=== PATIENT | female | born 1990 | race African-American/Black ===

== ENCOUNTER 2016-12-11 20:19 | Emergency (ER) | payer OTHER ==
[~2016-12-11] VITALS: Ht 170.2 cm; Wt 71.0 kg
[~2016-12-11 20:19] MED LIST: BACTRIM DS1 TAB PO; BENADRY2 EX; BENADRYL 50MG C50 MG PO; CEPHALEXIN500 MG PO; CIPROFLOXACN500 MG PO; DOXY-CAPS100 MG PO; IBUPROFEN600 MG PO; IRON325 M1 PO; LORTAB 7.57.5 MG PO; MOTRIN800 MG PO; NAPROSYN500 MG PO; ONDANSETRON4 MG PO; PRENATABS RX PO; PRENATAL; PROVENTIL HFA IN; ROBITUSSIN200 MG/10 PO; ULTRAM50 M1 PO; VISTARIL 50MG C50 M1 PO; ZOFRAN ODT4 MG PO
[2016-12-11] MEDS ORDERED: NAPROSYN500 MG PO (23:07)
[2016-12-11 23:59] VITALS: BP 123/77
== END 2016-12-12 05:27 | disposition home or self-care (01) | DRG 563 ==
LOC: ED 20:19
DX: S63.502A Unspecified sprain of left wrist, initial encounter (principal); X58.XXXA Exposure to other specified factors, initial encounter; Y93.89 Activity, other specified; Y92.89 Other specified places as the place of occurrence of the external cause

== ENCOUNTER 2017-02-01 17:32 | Emergency (ER) | payer OTHER ==
[~2017-02-01] VITALS: Ht 170.2 cm; Wt 80.0 kg
[2017-02-01] MEDS ORDERED: PRENATA4 PO (17:46)
[2017-02-01] MEDS ORDERED: FERROUS SULF324 M1 PO (17:47)
[2017-02-01 18:44] LABS: URINE BILIRUBIN - DIPSTICK NEGATIVE (NEGATIVE); URINE BLOOD DIPSTICK NEGATIVE (NEGATIVE); URINE COLOR YELLOW; URINE GLUCOSE - DIPSTICK NEGATIVE (NEGATIVE); URINE KETONE TRACE mg/dL (NEGATIVE); URINE LEUK ESTERASE NEGATIVE (NEGATIVE); URINE PROTEIN - DIPSTICK TRACE mg/dL (NEG-TRACE); URINE SPECIFIC GRAVITY >=1.030; URINE UROBILINOGEN - DIPSTICK 0.2 E.U./dL (0.2)
[2017-02-01 18:53] LABS: URINE CLARITY CLOUDY; URINE NITRITE - DIPSTICK POSITIVE (Negative)
[2017-02-01 18:54] LABS: URINE BACTERIA MANY hpf; URINE SQUAMOUS EPITHELIAL CELL FEW EPI/hpf (0-FEW)
[2017-02-01] MEDS ORDERED: MACRODANTIN100 MG PO (19:02)
[2017-02-01 19:38] VITALS: BP 132/69
== END 2017-02-01 19:39 | disposition home or self-care (01) | DRG 781 ==
LOC: ED 17:32
PROVIDERS: Emergency Medicine
DX: O26.892 Other specified pregnancy related conditions, second trimester (principal); B96.20 Unspecified Escherichia coli [E. coli] as the cause of diseases classified elsewhere; R51 Headache; O23.42 Unspecified infection of urinary tract in pregnancy, second trimester; O99.512 Diseases of the respiratory system complicating pregnancy, second trimester; J45.909 Unspecified asthma, uncomplicated; Z3A.19 19 weeks gestation of pregnancy

== ENCOUNTER 2017-04-02 21:25 | Emergency (ER) | payer OTHER ==
[~2017-04-02] VITALS: Ht 170.2 cm; Wt 77.8 kg
[~2017-04-02 21:25] MED LIST changes: +FERR SULFATE325 MG PO; +FERROUS SULF324 M1 PO; +MACRODANTIN100 MG PO; +PRENATA4 PO
[2017-04-02 22:15] LABS: HEMATOCRIT 30.4 % (37.0-47.0); HEMOGLOBIN 9.6 g/dl (12.0-16.0); IMMATURE GRANULOCYTES 1.3 % (0.0-1.0); MEAN CELL VOLUME 71.4 fL CALC (80.0-100.0); MEAN CORPUSCULAR HGB 22.5 pG CALC (26.0-32.0); MEAN CORPUSCULAR HGB CONC 31.6 g/L CALC (32.0-36.0); NEUT# 7.36 thou/uL (2.00-7.15); RED BLOOD COUNT 4.26 mill/uL (4.20-5.60); RED CELL DISTRI WIDTH 17.7 % (11.5-15.5)
[2017-04-02 22:27] LABS: ALBUMIN 3.9 g/dL (3.2-5.0); ALKALINE PHOSPHATASE 61 u/l (38-126); ANION GAP 11 (6-22 (CALC)); BILIRUBIN, TOTAL 0.3 mg/dL (0.0-1.4); BUN 10 mg/dL (7-17); BUN/CREATININE RATIO 19 (12-20 (CALC)); CALCIUM 9.2 mg/dL (8.4-10.2); CARBON DIOXIDE 24 mmol/l (22-30); CHLORIDE 104 mmol/l (95-108); CREATININE 0.6 mg/dL (0.5-1.0); GFR > 60 ML/MIN (>=60 (CALC)); GFR FOR AFR.AMER. > 60 ML/MIN (>=60 (CALC)); GLUCOSE 93 mg/dL (65-105); POTASSIUM 3.5 mmol/l (3.5-5.1); SGOT/AST 25 u/l (14-36); SGPT/ALT 28 u/l (9-52); SODIUM 135 mmol/l (137-146); TOTAL PROTEIN 7.3 g/dL (6.3-8.2)
[2017-04-02 22:39] LABS: MYOGLOBIN 38 ng/mL (0 - 62)
--- NOTE | 2017-04-02 23:00 | NUR ---
BREATHING TREATMENT GIVEN FOR WHEEZING. EXPLANATION GIVEN ABOUT HOW TO DEPOSIT THE PARTICLES DOWN TO THE LUNGS.
[2017-04-02] MEDS ORDERED: KEFLEX500 M1 PO (23:54)
[2017-04-03 00:08] VITALS: BP 102/55
[2017-04-03] MEDS ORDERED: VENTOLIN HFA IN (00:08)
== END 2017-04-03 00:18 | disposition home or self-care (01) | DRG 781 ==
LOC: ED 21:25
PROVIDERS: Emergency Medicine
DX: O26.892 Other specified pregnancy related conditions, second trimester (principal); J40 Bronchitis, not specified as acute or chronic; R09.1 Pleurisy; R06.02 Shortness of breath; R11.10 Vomiting, unspecified; Z3A.20 20 weeks gestation of pregnancy; R01.1 Cardiac murmur, unspecified

== ENCOUNTER 2017-04-12 14:54 | Emergency (ER) | payer OTHER ==
[~2017-04-12] VITALS: Ht 170.2 cm; Wt 78.0 kg
[~2017-04-12 14:54] MED LIST changes: +KEFLEX500 M1 PO; +VENTOLIN HFA IN
[2017-04-12 16:43] LABS: URINE BILIRUBIN - DIPSTICK NEGATIVE (NEGATIVE); URINE BLOOD DIPSTICK NEGATIVE (NEGATIVE); URINE CLARITY CLEAR; URINE COLOR YELLOW; URINE GLUCOSE - DIPSTICK NEGATIVE (NEGATIVE); URINE KETONE NEGATIVE (NEGATIVE); URINE LEUK ESTERASE NEGATIVE (NEGATIVE); URINE NITRITE - DIPSTICK NEGATIVE (Negative); URINE PROTEIN - DIPSTICK NEGATIVE (NEG-TRACE); URINE SPECIFIC GRAVITY 1.015; URINE UROBILINOGEN - DIPSTICK 0.2 E.U./dL (0.2)
[2017-04-12 16:47] LABS: HEMATOCRIT 29.8 % (37.0-47.0); HEMOGLOBIN 9.2 g/dl (12.0-16.0); IMMATURE GRANULOCYTES 1.3 % (0.0-1.0); MEAN CELL VOLUME 71.3 fL CALC (80.0-100.0); MEAN CORPUSCULAR HGB CONC 30.9 g/L CALC (32.0-36.0); NEUT# 5.13 thou/uL (2.00-7.15); RED BLOOD COUNT 4.18 mill/uL (4.20-5.60); RED CELL DISTRI WIDTH 17.6 % (11.5-15.5)
[2017-04-12 17:13] LABS: ANION GAP 12 (6-22 (CALC)); BUN 5 mg/dL (7-17); BUN/CREATININE RATIO 9 (12-20 (CALC)); CALCIUM 8.8 mg/dL (8.4-10.2); CARBON DIOXIDE 23 mmol/l (22-30); CHLORIDE 106 mmol/l (95-108); CREATININE 0.5 mg/dL (0.5-1.0); GFR > 60 ML/MIN (>=60 (CALC)); GFR FOR AFR.AMER. > 60 ML/MIN (>=60 (CALC)); GLUCOSE 82 mg/dL (65-105); POTASSIUM 3.9 mmol/l (3.5-5.1); SODIUM 137 mmol/l (137-146)
[2017-04-12] MEDS ORDERED: PHENERGAN25 MG/TAB PO (17:27)
[2017-04-12 17:37] VITALS: BP 122/69
== END 2017-04-12 17:50 | disposition home or self-care (01) | DRG 781 ==
LOC: ED 14:54
PROVIDERS: Family Medicine
DX: O21.2 Late vomiting of pregnancy (principal); R05 Cough; Z3A.20 20 weeks gestation of pregnancy

== ENCOUNTER 2017-05-22 13:00 | Observation (INO) | payer OTHER ==
[~2017-05-22] VITALS: Ht 170.2 cm; Wt 79.4 kg
[2017-05-22] VITALS (11 sets, daily range): BP systolic 105–117; BP diastolic 52–65
--- NOTE | 2017-05-22 12:53 | NUR ---
Received patient from ER to Room 250. Patient here for complaint of vomiting, headache and lightheadness. Patient weighed and height obtained. Patient to bathroom for urine obtainment for urinalysis.
[~2017-05-22 13:00] MED LIST changes: +PHENERGAN25 MG/TAB PO
--- NOTE | 2017-05-22 13:30 | NUR ---
heart rate of 155, No contractions seen or palpated.
[2017-05-22 13:34] LABS: URINE BILIRUBIN - DIPSTICK NEGATIVE (NEGATIVE); URINE BLOOD DIPSTICK NEGATIVE (NEGATIVE); URINE CLARITY CLEAR; URINE COLOR YELLOW; URINE GLUCOSE - DIPSTICK NEGATIVE (NEGATIVE); URINE KETONE TRACE mg/dL (NEGATIVE); URINE LEUK ESTERASE NEGATIVE (NEGATIVE); URINE NITRITE - DIPSTICK NEGATIVE (Negative); URINE PH 6.5 (4.5-8.0); URINE PROTEIN - DIPSTICK TRACE mg/dL (NEG-TRACE); URINE SPECIFIC GRAVITY 1.025; URINE UROBILINOGEN - DIPSTICK 0.2 E.U./dL (0.2)
[2017-05-22] MEDS ORDERED: PRENATAL1 TA1 (13:41)
[2017-05-22 13:51] LABS: BARBITURATES NEGATIVE (NEGATIVE); COCAINE NEGATIVE (NEGATIVE); METHADONE NEGATIVE (NEGATIVE); OXCYCODONE NEGATIVE (NEGATIVE); TETRAHYDROCANNABIONOL NEGATIVE (NEGATIVE); TRICYLIC ANTIDEPRESSANTS NEGATIVE (NEGATIVE)
--- NOTE | 2017-05-22 14:00 | NUR ---
heart rate of 155, Moderate variability appropriate for gestational age.
--- NOTE | 2017-05-22 14:10 | NUR ---
Zofran 4mg iv every 4 hours as needed for nausea to be given.
--- NOTE | 2017-05-22 14:10 | NUR ---
Dr. Rueda called and notified of patient's presence on unit. Order for Lactated Ringers with bolus of 150cc, then Lactated Ringers at 125cc/hr, Labs of CBC and CMP to be drawn.
--- NOTE | 2017-05-22 14:30 | NUR ---
iv START OF WITH lACTATED RINGERS. iv BOLUS OF lACTATED RINGERS 500CC AND THEN AT 125CC/HR.
--- NOTE | 2017-05-22 15:00 | NUR ---
cALL TO dR. Baker FOR INTERMITTENT MONITORING AND CLEAR LIQUID DIET FOR PATIENT.
[2017-05-22 15:06] LABS: HEMATOCRIT 31.7 % (37.0-47.0); HEMOGLOBIN 9.8 g/dl (12.0-16.0); IMMATURE GRANULOCYTES 2.5 % (0.0-1.0); MEAN CELL VOLUME 69.4 fL CALC (80.0-100.0); MEAN CORPUSCULAR HGB 21.4 pG CALC (26.0-32.0); MEAN CORPUSCULAR HGB CONC 30.9 g/L CALC (32.0-36.0); NEUT# 7.64 thou/uL (2.00-7.15); RED BLOOD COUNT 4.57 mill/uL (4.20-5.60)
--- NOTE | 2017-05-22 15:18 | NUR ---
zOFRAN 4MG iv GIVEN FOR NAUSEA.
[2017-05-22 15:29] LABS: ALBUMIN 3.8 g/dL (3.2-5.0); ALKALINE PHOSPHATASE 79 u/l (38-126); ANION GAP 13 (6-22 (CALC)); BILIRUBIN, TOTAL 0.5 mg/dL (0.0-1.4); BUN 7 mg/dL (7-17); BUN/CREATININE RATIO 13 (12-20 (CALC)); CALCIUM 9.3 mg/dL (8.4-10.2); CARBON DIOXIDE 22 mmol/l (22-30); CHLORIDE 104 mmol/l (95-108); CREATININE 0.5 mg/dL (0.5-1.0); GFR > 60 ML/MIN (>=60 (CALC)); GFR FOR AFR.AMER. > 60 ML/MIN (>=60 (CALC)); GLUCOSE 74 mg/dL (65-105); POTASSIUM 4.3 mmol/l (3.5-5.1); SGOT/AST 22 u/l (14-36); SGPT/ALT 28 u/l (9-52); SODIUM 136 mmol/l (137-146); TOTAL PROTEIN 7.1 g/dL (6.3-8.2)
--- NOTE | 2017-05-22 16:53 | NUR ---
patient resting comfortably in bed in no distress at present moment.
--- NOTE | 2017-05-22 19:52 | NUR ---
PT OOB TO VOID. THEN EFM APPILED BABY IS MOVING. PT STATED NO CONTRACTIONS AND ABDOMEN PALPATED NO CONTRACTION FELT.
--- NOTE | 2017-05-22 22:31 | NUR ---
1899: REPORT RECEIVED BY TWYLA CRONIN. PT IS SITTING IN BED. PT STATED THAT SHE HAS A HEADACHE. TOLD PT WILL CALL MD FOR MEDICATION. PT DENIES ANY OTHER NEEDS AT THIS TIME. 1943: CALLED DR. GONZALEZ RE: PT C/O A HEADACHE. ORDERS RECEIVED. 2133: CALLED DR. GONZALEZ RE: FHM, BABY IS REACTIVE 150 , ACCELS, AND VARIABILITY MODERATE. MD STATED MAY TAKE FHM OFF AND DO NST IN THE AM.
--- NOTE | 2017-05-22 23:02 | NUR ---
PT IS RESTING IN BED. PT STATED "HEADACHE IS FEELING BETTER PAIN IS 4/10". PT STATED WILL TRY TO SLEEP. PT DENIES ANY NEEDS AT THIS TIME.
--- NOTE | 2017-05-23 02:19 | NUR ---
PT IS SLEEPING IN BED WITH NO S/S OF DISTRESS NOTED.
--- NOTE | 2017-05-23 06:06 | NUR ---
PT IS RESTING IN BED. PT STATED THAT SHE DOES NOT HAVE A HEADACHE ANY MORE. PT DENIES ANY NEEDS AT THIS TIME. GETTING REPORT READY FOR ONCOMING SHIFT.
--- NOTE | 2017-05-23 07:30 | NUR ---
PT LAYING IN BED, RESTING, UP TO VOID, 300ML OF DARK YELLOW/ORANGE. EFM STARTED, VERY DIFFICULT TO TOOTH CLERK FHR. ASSESSMENT AND VS DONE, STABLE, PT C/O PAIN 5/10 TO LOWER ABDOMEN, STATES PAIN IS THERE ALL THE TIME, DULL. WILL LET MD KNOW.
[2017-05-23 07:40] VITALS: BP 118/66
--- NOTE | 2017-05-23 07:55 | NUR ---
DR. GONZALEZ AT BEDSIDE, NOTIFIED OF DARK URINE, WELL DIFFICULT PICKING UP FHR, ORDERS CHANGED FROM NST TO FHR DOPPLER Q SHIFT. ALSO NOTIFIED MD OF PT'S C/O LOWER ABDOMINAL PAIN 01/16. FURTHER ORDERS RECEIVED. PT DENIES HEADACHE OR NAUSEA THIS MORNING.
--- NOTE | 2017-05-23 09:50 | NUR ---
PT TAKEN TO ULTRASOUND AT THIS TIME.
--- NOTE | 2017-05-23 10:38 | NUR ---
Dr GONZALEZ UPDATED ON PATIENT ULTRASOUND WNL, FLUID VISABLE, AND CERVICAL LENGTH OF 4/5 CM. PT COMPLAINING OF MILD HEADACHE AND LOWER ABDOMNAL PAIN. MEDICATION GIVEN TO PATIENT AT THIS TIME. PT DENIES ANY OTHER NEEDS AT THIS TIME. PT ASKING IF SHE GETS TO GO HOME TODAY WELL. PHYSICIAN GAVE DISCHARGE ORDERS. PT NEEDS TO FOLLOW UP WITH HER REGULAR SCHEDULED APPONTMENT IN THE OFFICE.
--- NOTE | 2017-05-23 10:45 | NUR ---
PT GIVEN DISCHARGE INSTRUCTIONS AND LABOR PRECAUTIONS. PT UNDERSTANDS ALL INSTRUCTIONS AND HAS AN APPOINTMENT SCHEDULED SaturdayMay WITH DR GONZALEZ. PT LEFT AMBLATORY WITH ALL BELONGINGS. PT DENIES ANY PROBLEMS AT THIS TIME.
== END 2017-05-23 11:02 | disposition home or self-care (01) | DRG 781 ==
LOC: OBOP 13:00 → OB 13:00 → OBOP 14:14 → OB 19:44
PROVIDERS: ADMIT Obstetrics & Gynecology; ATTEND Obstetrics & Gynecology
DX: O26.892 Other specified pregnancy related conditions, second trimester (principal); E86.9 Volume depletion, unspecified; R10.30 Lower abdominal pain, unspecified; R11.2 Nausea with vomiting, unspecified; R10.13 Epigastric pain; Z3A.26 26 weeks gestation of pregnancy
CPT/HCPCS: G0378

== ENCOUNTER 2017-06-16 19:40 | Emergency (ER) | payer OTHER ==
[~2017-06-16] VITALS: Ht 170.2 cm; Wt 82.2 kg
[~2017-06-16 19:40] MED LIST changes: +PRENATAL1 TA1
[2017-06-16 22:38] VITALS: BP 117/55
== END 2017-06-16 22:38 | disposition home or self-care (01) | DRG 781 ==
LOC: ED 19:40
DX: O26.893 Other specified pregnancy related conditions, third trimester (principal); M79.651 Pain in right thigh; Z3A.31 31 weeks gestation of pregnancy; R22.41 Localized swelling, mass and lump, right lower limb

== ENCOUNTER 2017-06-21 23:19 | Observation (INO) | payer OTHER ==
[~2017-06-21] VITALS: Ht 170.2 cm; Wt 81.6 kg
[2017-06-21 23:30] VITALS: BP 134/72
[2017-06-21 23:55] LABS: URINE BILIRUBIN - DIPSTICK NEGATIVE (NEGATIVE); URINE BLOOD DIPSTICK NEGATIVE (NEGATIVE); URINE CLARITY SLIGHT CLOUDY; URINE COLOR YELLOW; URINE GLUCOSE - DIPSTICK NEGATIVE (NEGATIVE); URINE KETONE NEGATIVE (NEGATIVE); URINE LEUK ESTERASE NEGATIVE (NEGATIVE); URINE NITRITE - DIPSTICK NEGATIVE (Negative); URINE PH 6.5 (4.5-8.0); URINE PROTEIN - DIPSTICK NEGATIVE (NEG-TRACE); URINE UROBILINOGEN - DIPSTICK 0.2 E.U./dL (0.2)
[2017-06-21 23:58] LABS: BARBITURATES NEGATIVE (NEGATIVE); COCAINE NEGATIVE (NEGATIVE); METHADONE NEGATIVE (NEGATIVE); OXCYCODONE NEGATIVE (NEGATIVE); TETRAHYDROCANNABIONOL NEGATIVE (NEGATIVE); TRICYLIC ANTIDEPRESSANTS NEGATIVE (NEGATIVE)
[2017-06-22 01:00] VITALS: BP 126/86
[2017-06-22 06:30] VITALS: BP 119/67
== END 2017-06-22 09:12 | disposition home or self-care (01) | DRG 781 ==
LOC: OB 23:19 → OBOP 23:19 → OB 06-22 00:50
PROVIDERS: ADMIT Obstetrics & Gynecology; ATTEND Obstetrics & Gynecology
DX: O26.893 Other specified pregnancy related conditions, third trimester (principal); R10.30 Lower abdominal pain, unspecified; Z3A.30 30 weeks gestation of pregnancy
CPT/HCPCS: G0378

== ENCOUNTER 2017-08-06 03:25 | Observation (INO) | payer OTHER ==
[~2017-08-06] VITALS: Ht 170.2 cm; Wt 84.8 kg
[2017-08-06] VITALS (13 sets, daily range): BP systolic 105–126; BP diastolic 54–75
[2017-08-06 03:44] LABS: URINE BILIRUBIN - DIPSTICK NEGATIVE (NEGATIVE); URINE BLOOD DIPSTICK SMALL (NEGATIVE); URINE COLOR YELLOW; URINE GLUCOSE - DIPSTICK NEGATIVE (NEGATIVE); URINE KETONE TRACE mg/dL (NEGATIVE); URINE LEUK ESTERASE NEGATIVE (NEGATIVE); URINE NITRITE - DIPSTICK NEGATIVE (Negative); URINE PH 6.5 (4.5-8.0); URINE PROTEIN - DIPSTICK NEGATIVE (NEG-TRACE); URINE UROBILINOGEN - DIPSTICK 0.2 E.U./dL (0.2)
[2017-08-06 03:46] LABS: BARBITURATES NEGATIVE (NEGATIVE); COCAINE NEGATIVE (NEGATIVE); METHADONE NEGATIVE (NEGATIVE); OXCYCODONE NEGATIVE (NEGATIVE); TETRAHYDROCANNABIONOL NEGATIVE (NEGATIVE); TRICYLIC ANTIDEPRESSANTS NEGATIVE (NEGATIVE); URINE CLARITY SL CLOUDY
[2017-08-06 03:47] LABS: URINE BACTERIA FEW hpf; URINE SQUAMOUS EPITHELIAL CELL FEW EPI/hpf (0-FEW)
[2017-08-06 05:14] LABS: HEMATOCRIT 27.3 % (37.0-47.0); HEMOGLOBIN 8.3 g/dl (12.0-16.0); IMMATURE GRANULOCYTES 1.6 % (0.0-1.0); MEAN CELL VOLUME 64.1 fL CALC (80.0-100.0); MEAN CORPUSCULAR HGB 19.5 pG CALC (26.0-32.0); MEAN CORPUSCULAR HGB CONC 30.4 g/L CALC (32.0-36.0); NEUT# 6.35 thou/uL (2.00-7.15); RED BLOOD COUNT 4.26 mill/uL (4.20-5.60)
[2017-08-06 05:20] LABS: ALBUMIN 3.3 g/dL (3.2-5.0); ALKALINE PHOSPHATASE 79 u/l (38-126); ANION GAP 11 (6-22 (CALC)); BILIRUBIN, TOTAL 0.6 mg/dL (0.0-1.4); BUN 7 mg/dL (7-17); BUN/CREATININE RATIO 13 (12-20 (CALC)); CALCIUM 8.8 mg/dL (8.4-10.2); CARBON DIOXIDE 20 mmol/l (22-30); CHLORIDE 109 mmol/l (95-108); CREATININE 0.5 mg/dL (0.5-1.0); GFR > 60 ML/MIN (>=60 (CALC)); GFR FOR AFR.AMER. > 60 ML/MIN (>=60 (CALC)); GLUCOSE 84 mg/dL (65-105); POTASSIUM 4.3 mmol/l (3.5-5.1); SGOT/AST 39 u/l (14-36); SGPT/ALT 21 u/l (9-52); SODIUM 136 mmol/l (137-146); TOTAL PROTEIN 6.4 g/dL (6.3-8.2)
[2017-08-06 17:21] LABS: HEMATOCRIT 30.2 % (37.0-47.0); HEMOGLOBIN 9.5 g/dl (12.0-16.0); IMMATURE GRANULOCYTES 1.9 % (0.0-1.0); MEAN CELL VOLUME 67.9 fL CALC (80.0-100.0); MEAN CORPUSCULAR HGB 21.3 pG CALC (26.0-32.0); MEAN CORPUSCULAR HGB CONC 31.5 g/L CALC (32.0-36.0); NEUT# 5.9 thou/uL (2.00-7.15); RED BLOOD COUNT 4.45 mill/uL (4.20-5.60); RED CELL DISTRI WIDTH 23.1 % (11.5-15.5)
[2017-08-13] MEDS ORDERED: PRENATA3 PO (01:43)
== END 2017-08-06 18:10 | disposition home or self-care (01) | DRG 780 ==
LOC: OB 03:25 → OBOP 03:25 → OB 04:25
PROC: 30233N1 Transfusion of Nonautologous Red Blood Cells into Peripheral Vein, Percutaneous Approach (ICD-10-PCS; principal; 2017-08-06)
PROC: 30233N1 Transfusion of Nonautologous Red Blood Cells into Peripheral Vein, Percutaneous Approach (ICD-10-PCS; 2017-08-06)
DX: O47.1 False labor at or after 37 completed weeks of gestation (principal); O99.013 Anemia complicating pregnancy, third trimester; D64.9 Anemia, unspecified; Z3A.37 37 weeks gestation of pregnancy
CPT/HCPCS: G0378; J2540; P9016

== ENCOUNTER 2017-08-30 10:26 | Inpatient (IN) | payer OTHER ==
[~2017-08-30] VITALS: Ht 170.2 cm; Wt 83.2 kg
[2017-08-30] VITALS (11 sets, daily range): BP systolic 102–133; BP diastolic 52–87
[~2017-08-30 10:26] MED LIST changes: +PRENATA3 PO
--- NOTE | 2017-08-30 10:37 | NUR ---
PATIENT AMBULATES TO UNIT UNACCOMPANIED. SENT FROM [facility] OFFICE FOR IOL FOR POSTDATES. WEIGHT AND HEIGHT OBTAINED. ESCORTED TO ROOM 253. CLEAN CATCH SPECIMEN OF URINE EXPLAINED AND OBTAINED. EFM COMMENCED. HISTORY OF HEART MURMUR. NO OTHER SIGNIFICANT HISTORY. INITIAL AND OB ASSESSMENTS DONE. HEART MURMUR AUSCULTATED AND CONFORMED BY SECOND RN. ORDERS TO BE COMMENCED BREANA.
--- NOTE | 2017-08-30 11:15 | NUR ---
FHR BASELINE 170S. WILL GIVE IVF BOLUS AND REEVALUATE FOR IOL. MD TO BE INFORMED OF HEART MURMUR AND DELAYED IOL.
[2017-08-30] MEDS ORDERED: PRE-NATAL PO (11:28)
[2017-08-30 11:47] LABS: HEMATOCRIT 33.3 % (37.0-47.0); HEMOGLOBIN 10.4 g/dl (12.0-16.0); IMMATURE GRANULOCYTES 1.2 % (0.0-1.0); MEAN CELL VOLUME 69.7 fL CALC (80.0-100.0); MEAN CORPUSCULAR HGB 21.8 pG CALC (26.0-32.0); MEAN CORPUSCULAR HGB CONC 31.2 g/L CALC (32.0-36.0); NEUT# 7.21 thou/uL (2.00-7.15); RED BLOOD COUNT 4.78 mill/uL (4.20-5.60); RED CELL DISTRI WIDTH 26.4 % (11.5-15.5)
[2017-08-30 11:51] LABS: URINE BILIRUBIN - DIPSTICK NEGATIVE (NEGATIVE); URINE BLOOD DIPSTICK NEGATIVE (NEGATIVE); URINE COLOR YELLOW; URINE GLUCOSE - DIPSTICK NEGATIVE (NEGATIVE); URINE KETONE TRACE mg/dL (NEGATIVE); URINE LEUK ESTERASE NEGATIVE (NEGATIVE); URINE NITRITE - DIPSTICK NEGATIVE (Negative); URINE PROTEIN - DIPSTICK TRACE mg/dL (NEG-TRACE); URINE SPECIFIC GRAVITY 1.025
[2017-08-30 11:52] LABS: BARBITURATES NEGATIVE (NEGATIVE); COCAINE NEGATIVE (NEGATIVE); METHADONE NEGATIVE (NEGATIVE); OXCYCODONE NEGATIVE (NEGATIVE); TETRAHYDROCANNABIONOL NEGATIVE (NEGATIVE); TRICYLIC ANTIDEPRESSANTS NEGATIVE (NEGATIVE)
[2017-08-30 11:53] LABS: URINE CLARITY SL CLOUDY
[2017-08-30 12:04] LABS: ALBUMIN 3.4 g/dL (3.2-5.0); ALKALINE PHOSPHATASE 109 u/l (38-126); ANION GAP 14 (6-22 (CALC)); BILIRUBIN, TOTAL 0.7 mg/dL (0.0-1.4); BUN 7 mg/dL (7-17); BUN/CREATININE RATIO 15 (12-20 (CALC)); CALCIUM 9.1 mg/dL (8.4-10.2); CARBON DIOXIDE 19 mmol/l (22-30); CHLORIDE 108 mmol/l (95-108); CREATININE 0.5 mg/dL (0.5-1.0); GFR > 60 ML/MIN (>=60 (CALC)); GFR FOR AFR.AMER. > 60 ML/MIN (>=60 (CALC)); GLUCOSE 79 mg/dL (65-105); POTASSIUM 3.9 mmol/l (3.5-5.1); SGOT/AST 28 u/l (14-36); SGPT/ALT 13 u/l (9-52); SODIUM 136 mmol/l (137-146); TOTAL PROTEIN 6.3 g/dL (6.3-8.2)
--- NOTE | 2017-08-30 12:30 | NUR ---
MD NOTIFIED OF PATIENT WITH HEART MURMUR AND INDUCTION NOT YET STARTED DUE TO FH TACHYCARDIA. WILL COME TO SEE PATIENT.
--- NOTE | 2017-08-30 13:00 | NUR ---
[id number] FHR BASELINE INDETERMINATE. IVF OF LR COMPLETED. AWAITING MD EVALUATION.
--- NOTE | 2017-08-30 13:24 | NUR ---
INDUCTION OF LABOR COMMENCED ORDERED. WILL CONTINUE TO MONITOR CLOSELY.
--- NOTE | 2017-08-30 13:28 | NUR ---
PITOCIN TURNED OFF. TO EVALUATE FHR BEFORE RECOMMENCEMENT.
--- NOTE | 2017-08-30 13:41 | NUR ---
dr conrad notified via cellphone of fhr with sinusoidal like pattern. will come to evaluate.
--- NOTE | 2017-08-30 13:55 | NUR ---
MD AT BEDSIDE. REVIEWS FHR TRACING. SVE DONE CHARTED. NEW ORDERS RECEIVED.
--- NOTE | 2017-08-30 14:02 | NUR ---
HOLD INDUCTION UNTIL FURTHER NOTICE.
--- NOTE | 2017-08-30 15:45 | NUR ---
MEDICATED FOR HEADACHE ORDERED.
--- NOTE | 2017-08-30 16:30 | NUR ---
PATIENT VERBALSIE THAT SHE HAS PAIN WITH CONTRACTIONS. SAME CONTINUES TO PALPATE MILD. AMBULATION ENCOURAGED. PATIENT REFUSES STATING THAT SHE FEELS HUNGRY.
--- NOTE | 2017-08-30 18:00 | NUR ---
PATIENT IN BED WITH EYES CLOSED. AMBULATION ENCOURAGED BUT PATIENT REFUSES AT THIS TIME.
--- NOTE | 2017-08-30 19:21 | NUR ---
DR. LAGUNAS AT BEDSIDE. SVE PERFORMED . PT AWARE OF PLAN FOR INTERMITTENT MONTIORING AND WILL RESUME INDUCTION IN MORNING. PT CONCERED OVER EATTING. DR. LAGUNAS GAVE ORDERS FOR VISITIRL TONIGHT. PT C/O HEADACHE AND STATES THAT TYLENOL DID NOT HELP WITH PAIN. DR. LAGUNAS INFORMED OF NO RELIEF WITH TYLENOL.
--- NOTE | 2017-08-30 19:50 | NUR ---
ASSESSMENT COMPLETED- WNL. CLEAR LIQUIDS PROVIDED PER ORDERS. PT RESTING QUIETLY IN BED. PT C/O HEADACHE- MEDCIATED ORDERED. PT DENIES ANY OTHER NEEDS AT THIS TIME. ENCOURAGED PT TO CALL WITH ANY NEEDS.
--- NOTE | 2017-08-30 19:50 | NUR ---
PT TURNED TO RIGHT SIDE, US AND TOCO ADJUSTED.
--- NOTE | 2017-08-30 21:26 | NUR ---
EFM REMOVED. NST REACTIVE. PT STATES RELEIF FROM PAIN MEDICATION. PT REQUESTING FOOD. INFORMED OF CLEAR LIQUID DIET. JELLO PROVIDED. NO OTHER NEEDS EXPRESSED. ENCOURAGED TO CALL WITH NEEDS.
--- NOTE | 2017-08-30 22:45 | NUR ---
PT OOB TO BR TO VOID. PT REQUESTING FOOD. CHICKER BROTH PROVIDED. PT DENIES ANY OTHER NEEDS. INFORMED PT THAT WE WOULD REPLACE EFM AROUND MIDNIGHT. HOWEVER, IF PAIN INCREASES IN FREQUENCY OR STRENGTH OR HAS LEAKING OF FLUID TO CALL OUT.
[2017-08-31] VITALS (11 sets, daily range): BP systolic 109–151; BP diastolic 55–73
--- NOTE | 2017-08-31 00:17 | NUR ---
PT RESTING. STATES SHE IS GETTING SOME SLEEP. IV INFUSING WITHOUT PROBLEMS ON MED PUMP.
--- NOTE | 2017-08-31 01:46 | NUR ---
EFM APPLIED FOR INTERMITTENT MONITORING AND NST. PT WAS SLEEPING WHEN ENTERED THE ROOM AND DENIES ANY PAIN. ENCOURAGED PT TO CALL IF INCREASED IN PAIN OR RUPTURE OF MEMBRANES.
--- NOTE | 2017-08-31 02:30 | NUR ---
PT CALLED OUT WITH RUPTURE OF MEMBRANES AT 0205 WITH MODERATE MECONIUM. SVE /-1 POSTERIOR AND VERTEX. PT REQUESTING TO SHOWER. PT OOB TO BR TO VOID AND THEN SHOWER. LINENS CHANGED. PT BACK TO BED. EFM APPLIED. PT STARTING TO BREATH THROUGH CONTRACTIONS OCCASIONALLY. PT DENIES NEED FOR PAIN MEDICATION. ENCOURAGED PT TO CALL WITH ANY NEEDS OR CONCERNS.
--- NOTE | 2017-08-31 05:48 | NUR ---
DR. LAGUNAS AT BEDSIDE. SVE PERFORMED 8-/0. ORDERS RECEIVED TO MOVE TO ROOM.
--- NOTE | 2017-08-31 06:01 | NUR ---
ATTEMPTED TO GET PT TO WHEELCHAIR WITH MUCH DIFFICULTLY. PT SLOW TO DANGLE AND TRANSFER TO WHEELCHAIR. THEN TRANSFERRED PT IN WHEELCHAIR WITH SIGNIFICANT AT SIDE. PT SITTING ON ON SIDE OF BOTTOM DURING TRANSFERRED AND YELLED BABY IS COMING. INFORMED PT TO GET INTO BED. PT SCREAMED, "BABY IS COMING OUT" NOTED INFANT TO BE . WHEN TRYING TO GET PT TO BED, HEAD DELIVERED OA. Valencia HITCHCOCK RN & THIS RN MOVED TO BOTTOM OF BED. INFANT DELIVERED AT 0555. INFANT DRIED AND STIMULATED, SPONTANEOUS CRY NOTED. DR. LAGUNAS AT BEDSIDE AT 0555. PLACENTA DELIVERED AT 0601. PITOCIN RUNNING. DONNELL CARE PROVIDED. GOWN CHANGED, PARTIAL LINEN CHANGED AND NEW SOCKS CHANGED ON PT. TO WARMER.
--- NOTE | 2017-08-31 07:45 | NUR ---
patient moved from br 1 to room. pericare explained and done. made comfortable in bed. medicated for pain as requested.
--- NOTE | 2017-08-31 14:49 | NUR ---
SITTING UP IN RECLINER AT BEDSIDE. DENIES PAIN. OFFERS NO CONCERNS.
--- NOTE | 2017-08-31 18:30 | NUR ---
DENIES ADEQUATE PAIN RELIEF. WARM COMPRESS GIVEN TO APPLY TO LOWER ABDOMEN.
--- NOTE | 2017-08-31 19:15 | NUR ---
PT RESTING QUIETLY IN BED WITH INFANT IN ARMS. ASSESSMENT COMPLETED CHARTED. PT STATES HAS UTERINE CRAMPING. INFORMED TO ATTEMPT TO VOID EVERY 2-3 HOURS TO HELP UTERUS AND I WOULD CALL FOR STRONGER PAIN MEDICATION. PT CURRENTLY HAS HEATING PAD ON ABDOMEN. ENCOURAGED PT TO READ OVER DISCHARGE TEACHING AND I WOULD REVIEW VERBALLY. EDUCATED PT TO CALL IF SATURATES A PAD AN HOUR OR CLOTS ARE BIGGER THEN GOLF BALL- VERBALIZED UNDERSTANDING. PT DENIES ANY OTHER NEEDS AT THIS TIME. ENCOURAGED PT TO CALL WITH ANY NEEDS OR CONCERNS.
--- NOTE | 2017-08-31 23:30 | NUR ---
PT RESTING IN BED WITH INFANT IN ARMS. SANITARY PADS PROVIDED. PT DENIES ANY OTHER NEEDS AT THIS TIME. ENCOURAGED PT TO CALL WITH ANY NEEDS OR CONCERNS.
--- NOTE | 2017-09-01 02:00 | NUR ---
PT SLEEPING IN BED, DID NOT STIR WHEN ENTERED THE ROOM. INFANT IN OPEN CRIB IN STABLE CONDITION. WILL CONTINUE TO MONITOR.
[2017-09-01 04:44] VITALS: BP 122/64
[2017-09-01 05:31] LABS: HEMATOCRIT 29.3 % (37.0-47.0); IMMATURE GRANULOCYTES 1.9 % (0.0-1.0); MEAN CELL VOLUME 71.1 fL CALC (80.0-100.0); MEAN CORPUSCULAR HGB 21.8 pG CALC (26.0-32.0); MEAN CORPUSCULAR HGB CONC 30.7 g/L CALC (32.0-36.0); NEUT# 7.59 thou/uL (2.00-7.15); RED BLOOD COUNT 4.12 mill/uL (4.20-5.60); RED CELL DISTRI WIDTH 26.6 % (11.5-15.5)
--- NOTE | 2017-09-01 08:37 | NUR ---
ASSESSMENT DONE CHARTED. DENIES PAIN AT THIS TIME. OFFERS NO OTHER CONCERNS. TOOK AND TOLERATED BREAKFAST. HOPING TO BE DISCHARGED TODAY.
[2017-09-01] MEDS ORDERED: NORCO1 TA1 PO (10:35)
[2017-09-01] MEDS ORDERED: IBUPROFEN600 MG PO (10:35)
--- NOTE | 2017-09-01 11:44 | NUR ---
GIVEN PRESCRIPTIONS FOR NORCO, FERROUS SULFATE, AND IBUPROFEN. INSTRUCTED TO CALL TO SCHEDULE FOLLOW APPT. VERBALISE UNDERSTANDING.
--- NOTE | 2017-09-01 12:25 | NUR ---
Discharge instructions given. Patient verbalizes understanding of same. Discharged in stable condition via Wheelchair to Home with significant other. All belongings sent with pt.
== END 2017-09-01 12:25 | disposition home or self-care (01) | DRG 775 ==
LOC: OB 10:26
PROC: 10E0XZZ Delivery of Products of Conception, External Approach (ICD-10-PCS; principal; 2017-08-31)
DX: O48.0 Post-term pregnancy (principal); D62 Acute posthemorrhagic anemia; O62.3 Precipitate labor; O77.0 Labor and delivery complicated by meconium in amniotic fluid; O90.81 Anemia of the puerperium; Z3A.41 41 weeks gestation of pregnancy; Z37.0 Single live birth

== ENCOUNTER 2017-10-10 20:23 | Emergency (ER) | payer OTHER ==
[~2017-10-10] VITALS: Ht 170.2 cm; Wt 78.6 kg
[~2017-10-10 20:23] MED LIST changes: +NORCO1 TA1 PO; +PRE-NATAL PO
[2017-10-10 20:48] LABS: HEMATOCRIT 35.7 % (37.0-47.0); HEMOGLOBIN 10.6 g/dl (12.0-16.0); IMMATURE GRANULOCYTES 0.1 % (0.0-1.0); MEAN CELL VOLUME 73.3 fL CALC (80.0-100.0); MEAN CORPUSCULAR HGB 21.8 pG CALC (26.0-32.0); MEAN CORPUSCULAR HGB CONC 29.7 g/L CALC (32.0-36.0); NEUT# 3.55 thou/uL (2.00-7.15); RED BLOOD COUNT 4.87 mill/uL (4.20-5.60); RED CELL DISTRI WIDTH 24.4 % (11.5-15.5)
[2017-10-10 20:59] LABS: ALBUMIN 4.2 g/dL (3.2-5.0); ALKALINE PHOSPHATASE 96 u/l (38-126); ANION GAP 15 (6-22 (CALC)); BILIRUBIN, TOTAL 0.6 mg/dL (0.0-1.4); BUN 11 mg/dL (7-17); BUN/CREATININE RATIO 15 (12-20 (CALC)); CARBON DIOXIDE 22 mmol/l (22-30); CHLORIDE 109 mmol/l (95-108); CREATININE 0.8 mg/dL (0.5-1.0); GFR > 60 ML/MIN (>=60 (CALC)); GFR FOR AFR.AMER. > 60 ML/MIN (>=60 (CALC)); POTASSIUM 3.8 mmol/l (3.5-5.1); SGOT/AST 36 u/l (14-36); SGPT/ALT 29 u/l (9-52); SODIUM 142 mmol/l (137-146); TOTAL PROTEIN 7.1 g/dL (6.3-8.2)
[2017-10-10 21:05] LABS: URINE BILIRUBIN - DIPSTICK NEGATIVE (NEGATIVE); URINE BLOOD DIPSTICK NEGATIVE (NEGATIVE); URINE COLOR YELLOW; URINE GLUCOSE - DIPSTICK NEGATIVE (NEGATIVE); URINE KETONE TRACE mg/dL (NEGATIVE); URINE LEUK ESTERASE NEGATIVE (NEGATIVE); URINE NITRITE - DIPSTICK NEGATIVE (Negative); URINE PROTEIN - DIPSTICK TRACE mg/dL (NEG-TRACE); URINE SPECIFIC GRAVITY 1.025
[2017-10-10 21:09] LABS: BARBITURATES NEGATIVE (NEGATIVE); COCAINE NEGATIVE (NEGATIVE); METHADONE NEGATIVE (NEGATIVE); OXCYCODONE NEGATIVE (NEGATIVE); TETRAHYDROCANNABIONOL NEGATIVE (NEGATIVE); TRICYLIC ANTIDEPRESSANTS NEGATIVE (NEGATIVE); URINE CLARITY CLEAR
[2017-10-10 23:14] VITALS: BP 125/69
== END 2017-10-10 23:12 | DRG 914 ==
LOC: ED 20:23
PROVIDERS: Emergency Medicine
DX: T14.91XA Suicide attempt, initial encounter (principal); F53 Mental and behavioral disorders associated with the puerperium, not elsewhere classified; X83.8XXA Intentional self-harm by other specified means, initial encounter; Y92.008 Other place in unspecified non-institutional (private) residence as the place of occurrence of the external cause

== ENCOUNTER 2017-12-02 11:09 | Emergency (ER) | payer OTHER ==
[~2017-12-02] VITALS: Ht 170.2 cm; Wt 69.4 kg
[2017-12-02 12:00] LABS: URINE BILIRUBIN - DIPSTICK NEGATIVE (NEGATIVE); URINE BLOOD DIPSTICK NEGATIVE (NEGATIVE); URINE COLOR YELLOW; URINE GLUCOSE - DIPSTICK NEGATIVE (NEGATIVE); URINE KETONE NEGATIVE (NEGATIVE); URINE LEUK ESTERASE NEGATIVE (NEGATIVE); URINE NITRITE - DIPSTICK NEGATIVE (Negative); URINE PROTEIN - DIPSTICK TRACE mg/dL (NEG-TRACE); URINE SPECIFIC GRAVITY 1.025; URINE UROBILINOGEN - DIPSTICK 0.2 E.U./dL (0.2)
[2017-12-02 12:01] LABS: URINE CLARITY CLEAR
[2017-12-02] MEDS ORDERED: MOTRIN400 MG PO (13:19)
[2017-12-02 13:50] VITALS: BP 124/72
== END 2017-12-02 13:50 | disposition home or self-care (01) | DRG 552 ==
LOC: ED 11:09
PROVIDERS: Family Medicine
DX: M54.6 Pain in thoracic spine (principal); Y04.0XXA Assault by unarmed brawl or fight, initial encounter; Y93.89 Activity, other specified; Y92.89 Other specified places as the place of occurrence of the external cause

== ENCOUNTER 2018-01-23 17:35 | Emergency (ER) | payer OTHER ==
[~2018-01-23] VITALS: Ht 170.2 cm; Wt 60.0 kg
[~2018-01-23 17:35] MED LIST changes: +MOTRIN400 MG PO
[2018-01-23 18:48] LABS: URINE BILIRUBIN - DIPSTICK NEGATIVE (NEGATIVE); URINE BLOOD DIPSTICK NEGATIVE (NEGATIVE); URINE COLOR YELLOW; URINE GLUCOSE - DIPSTICK NEGATIVE (NEGATIVE); URINE KETONE NEGATIVE (NEGATIVE); URINE LEUK ESTERASE NEGATIVE (NEGATIVE); URINE NITRITE - DIPSTICK NEGATIVE (Negative); URINE PROTEIN - DIPSTICK TRACE mg/dL (NEG-TRACE); URINE SPECIFIC GRAVITY >=1.030; URINE UROBILINOGEN - DIPSTICK 0.2 E.U./dL (0.2)
[2018-01-23 18:49] LABS: URINE CLARITY CLEAR
[2018-01-23 18:53] LABS: HEMATOCRIT 31.7 % (37.0-47.0); HEMOGLOBIN 9.6 g/dl (12.0-16.0); MEAN CELL VOLUME 72.2 fL CALC (80.0-100.0); MEAN CORPUSCULAR HGB 21.9 pG CALC (26.0-32.0); MEAN CORPUSCULAR HGB CONC 30.3 g/L CALC (32.0-36.0); NEUT# 1.51 thou/uL (2.00-7.15); RED BLOOD COUNT 4.39 mill/uL (4.20-5.60)
[2018-01-23 19:11] LABS: ALKALINE PHOSPHATASE 71 u/l (38-126); AMYLASE 56 u/l (30-110); ANION GAP 15 (6-22 (CALC)); BILIRUBIN, TOTAL 0.3 mg/dL (0.0-1.4); BUN 12 mg/dL (7-17); BUN/CREATININE RATIO 19 (12-20 (CALC)); CARBON DIOXIDE 25 mmol/l (22-30); CHLORIDE 105 mmol/l (95-108); CREATININE 0.7 mg/dL (0.5-1.0); GFR > 60 ML/MIN (>=60 (CALC)); GFR FOR AFR.AMER. > 60 ML/MIN (>=60 (CALC)); LIPASE 157 u/l (23-300); POTASSIUM 3.9 mmol/l (3.5-5.1); SGOT/AST 19 u/l (14-36); SGPT/ALT 28 u/l (9-52); SODIUM 141 mmol/l (137-146); TOTAL PROTEIN 7.1 g/dL (6.3-8.2)
[2018-01-23 20:14] VITALS: BP 129/65
== END 2018-01-23 20:14 | disposition home or self-care (01) | DRG 392 ==
LOC: ED 17:35
PROVIDERS: Emergency Medicine
DX: R10.13 Epigastric pain (principal); R01.1 Cardiac murmur, unspecified; R10.33 Periumbilical pain; J45.909 Unspecified asthma, uncomplicated
CPT/HCPCS: Q9967; S0164

== ENCOUNTER 2018-05-03 17:09 | Emergency (ER) | payer OTHER ==
[~2018-05-03] VITALS: Ht 170.2 cm; Wt 70.0 kg
[2018-05-03 18:09] LABS: URINE BILIRUBIN - DIPSTICK NEGATIVE (NEGATIVE); URINE BLOOD DIPSTICK NEGATIVE (NEGATIVE); URINE COLOR YELLOW; URINE GLUCOSE - DIPSTICK NEGATIVE (NEGATIVE); URINE KETONE TRACE mg/dL (NEGATIVE); URINE LEUK ESTERASE NEGATIVE (NEGATIVE); URINE NITRITE - DIPSTICK NEGATIVE (Negative); URINE PH 5.5 (4.5-8.0); URINE PROTEIN - DIPSTICK 30 mg/dL (NEG-TRACE); URINE SPECIFIC GRAVITY >=1.030; URINE UROBILINOGEN - DIPSTICK 0.2 E.U./dL (0.2)
[2018-05-03 18:10] LABS: URINE CLARITY CLEAR
[2018-05-03 18:17] LABS: HEMATOCRIT 32.1 % (37.0-47.0); HEMOGLOBIN 9.6 g/dl (12.0-16.0); IMMATURE GRANULOCYTES 0.1 % (0.0-5.0); MEAN CORPUSCULAR HGB 20.6 pG CALC (26.0-32.0); MEAN CORPUSCULAR HGB CONC 29.9 g/L CALC (32.0-36.0); NEUT# 2.73 thou/uL (2.00-7.15); RED BLOOD COUNT 4.65 mill/uL (4.20-5.60); RED CELL DISTRI WIDTH 22.9 % (11.5-15.5)
[2018-05-03 18:20] LABS: URINE MUCUS MODERATE hpf (NONE-FEW); URINE SQUAMOUS EPITHELIAL CELL FEW EPI/hpf (0-FEW); URINE YEAST FEW hpf
[2018-05-03 18:37] LABS: ALBUMIN 4.2 g/dL (3.2-5.0); ALKALINE PHOSPHATASE 60 u/l (38-126); ANION GAP 13 (6-22 (CALC)); BILIRUBIN, TOTAL 0.2 mg/dL (0.0-1.4); BUN 11 mg/dL (7-17); BUN/CREATININE RATIO 17 (12-20 (CALC)); CARBON DIOXIDE 27 mmol/l (22-30); CHLORIDE 108 mmol/l (95-108); CREATININE 0.6 mg/dL (0.5-1.0); GFR > 60 ML/MIN (>=60 (CALC)); GFR FOR AFR.AMER. > 60 ML/MIN (>=60 (CALC)); POTASSIUM 3.9 mmol/l (3.5-5.1); SGOT/AST 22 u/l (14-36); SGPT/ALT 29 u/l (9-52); SODIUM 144 mmol/l (137-146); TOTAL PROTEIN 7.5 g/dL (6.3-8.2)
[2018-05-03] MEDS ORDERED: AMOXICILLIN500 MG PO (18:42)
[2018-05-03 18:50] VITALS: BP 123/74
[2018-05-04] MEDS ORDERED: DOXYCYC MONO100 M2 PO (15:02)
== END 2018-05-03 18:55 | disposition home or self-care (01) | DRG 603 ==
LOC: ED 17:09
PROVIDERS: Emergency Medicine
DX: L08.9 Local infection of the skin and subcutaneous tissue, unspecified (principal); J45.909 Unspecified asthma, uncomplicated

== ENCOUNTER 2018-05-04 13:41 | Emergency (ER) | payer OTHER ==
[~2018-05-04] VITALS: Ht 170.2 cm; Wt 72.0 kg
[~2018-05-04 13:41] MED LIST changes: +AMOXICILLIN500 MG PO
[2018-05-04] MEDS ORDERED: DOXYCYC MONO100 M2 PO (15:02)
[2018-05-04 15:08] VITALS: BP 127/84
== END 2018-05-04 15:08 | disposition home or self-care (01) | DRG 607 ==
LOC: ED 13:41
DX: R22.0 Localized swelling, mass and lump, head (principal); R13.10 Dysphagia, unspecified; R09.89 Other specified symptoms and signs involving the circulatory and respiratory systems; H93.8X3 Other specified disorders of ear, bilateral; T36.0X5A Adverse effect of penicillins, initial encounter; J45.909 Unspecified asthma, uncomplicated; R01.1 Cardiac murmur, unspecified